=== PATIENT | male | born 1990 | race Caucasian/White ===

== ENCOUNTER 2025-02-02 12:36 | Emergency (ER) | payer OTHER, SELFPAY ==
[2025-02-02 12:45] VITALS: BP 160/90
[2025-02-02 15:16] VITALS: BMI 47.6
--- NOTE | 2025-02-02 17:03 | ED.GENMED ---
History of Present Illness
General
Chief Complaint: Skin Problem
Source: patient
Exam Limitations: none
Time Seen by Provider: 02/02/25 16:44
History of Present Illness
History of Present Illness:
See MDM
Past History
Past History
ED Past Medical History: None and Other (GERD)
ED Past Surgical History: Other ([place] teeth)
Social History
Tobacco: Other (Cigar smoker)
Alcohol: None
Drug: None
Phy Exam
Physical Exam
Physical Exam:
See MDM
Course
Vital Signs
Initial and Last Documented VS:
Initial Vital Signs
Temp Pulse Resp BP Pulse Ox
98.8 F 93 18 160/90 97
02/02/25 12:45 02/02/25 12:45 02/02/25 12:45 02/02/25 12:45 02/02/25 12:45
Last Documented Vital Signs
Temp Pulse Resp BP Pulse Ox
98.8 F 93 18 160/90 97
02/02/25 12:45 02/02/25 12:45 02/02/25 12:45 02/02/25 12:45 02/02/25 12:45
Procedures
Other
Indication for procedure:: Varicose bleed of left leg
Procedure completed by: Andre Blair DO
Consent form signed: No
Additional Procedure:
After verbal consent, a single 4-0 nylon stitch placed in a [id number]-[id number] style overlying the varicose vein of distal left leg
MDM/Problems Addressed
Differential Diagnosis Includes:
HPI and MDM Narrative:
34-year-old male presenting for evaluation of varicose bleeding of his left leg. It randomly started bleeding the other day. It self resolved. He eventually went to urgent care who discussed follow-up with PCP. PCP spoke to vascular and
suggested a [id number] stitch. He was sent to the emergency department for the stitch. Patient has no active bleeding. I did place the stitch without difficulty. There is mild varicose blood oozing from the stitch site but no active bleeding
Physical exam
General: Well appearing and non-toxic
HEENT: protecting airway
Neck: appears supple
CV: No evidence of cyanosis
Resp: No accessory muscle use
Abd: Non-distended
Extremities: Nonbleeding varicose vein to left leg
Neuro: alert
Psych: Normal affect
Skin: Intact
Problems Addressed including Acute and Chronic Conditions affecting care:
1. Left leg varicose bleed
Acuity: acute
Prognosis: stable
Details: [id number]-ch-[id number] stitch placed without difficulty
Differential Diagnosis (but not limited to): Abrasion, varicose bleed
Testing considered: Hemoglobin
Drug therapy (if applicable): OTC meds, please see d/c instruction regarding Rx drugs
Amount and/or Complexity of Data Reviewed
Clinical info obtained from: Patient
External data reviewed: N/A
Labs I independently reviewed (but not limited to): N/A
Radiology: N/A
Pulse Ox: not hypoxic
EKG independently reviewed: N/A
Weighter: N/A
Critical Care: N/A
Risk of Complication:
Social Determinants of health: Good social support
Discussed with other providers: N/A
Escalation of Care includes Admit/Obs: After being observed in the Emergency Department, pt stable for discharge.
Occasional wrong word or 'sound a like' substitutions may have occurred due to the inherent limitations of voice recognition software. Read the chart carefully and recognize, using context, where substitutions have occurred.
*Critical Care Note
Total Time (30-74mins, 75-104mins- exclusive of procedures): Not Applicable
ED Attending Note
-
Portions of this chart may have been created with voice recognition software.� Occasional wrong word or��sound alike� substitutions may have occurred due to the inherent limitations of voice recognition software.
Discharge Plan
Departure
Patient Disposition: Home (Routine Discharge)
Date of Disposition: 02/02/25
Time of Disposition: 17:15
Patient with high blood pressure during this ER visit?: Yes
Discharge Problem:
Varicose vein of leg
Instructions: BLOOD PRESSURE
Prescriptions:
No Action
oxycodone-acetaminophen 5 MG/325 MG tablet
1 tab PO Q4HPRN PRN (Reason: pain) Qty: 15 0RF
Referrals:
Verónica Romero DO [Family Provider] -
Brayden Fishman MD [Active] -
Activity Restrictions/Additional Instructions:
Please return for any worsening symptoms.
You may return at any time if you have further concerns.
Please follow up with your doctor at the first available appointment, preferably this week.
Please make an appointment with the vascular surgeon. You should have the stitches removed in about 7 to 10 days.
Thank you for choosing [facility].
Interventions
Interventions:
*Risk Screen - Suicide Last Done: 02/02/25 12:45
*General Assessment Last Done: 02/02/25 12:45
*Neglect/Abuse Screening Last Done: 02/02/25 14:00
*ED- Fall Risk Assessment Last Done: 02/02/25 15:17
*ED COVID-19 Vaccine History Last Done: 02/02/25 15:17
ED-Skin Assessment Last Done: 02/02/25 14:00
Discharge Date and Time
Print Language: MALDIVIAN
== END 2025-02-02 17:27 | disposition home or self-care (01) ==
LOC: EMR 12:36
PROVIDERS: EMERGENCY PHYSICIAN Student in an Organized Health Care Education/Training Program; FAMILY PHYSICIAN Family Medicine
DX: I83.892 Varicose veins of left lower extremity with other complications (principal); R58 Hemorrhage, not elsewhere classified; F17.290 Nicotine dependence, other tobacco product, uncomplicated
CPT/HCPCS: 12001; 99282

== ENCOUNTER → 2025-02-15 10:32 | Outpatient (REF) | payer OTHER, SELFPAY | LOC: RAD 10:32 | PROVIDERS: ATTENDING PHYSICIAN Family Medicine | DX: I83.893 Varicose veins of bilateral lower extremities with other complications (principal) | CPT/HCPCS: 93970 ==